=== PATIENT | female | born 2000 | race Two or more races ===

== ENCOUNTER 2019-03-29 07:53 | Emergency (ER) | payer MEDICAID, OTHER ==
[~2019-03-29] VITALS: Ht 167.6 cm; Wt 107.5 kg
[2019-03-29] MEDS ORDERED: methylPREDNISolone SOD SUCC 125 MG/2 ML VL IM ONE (09:00)
[2019-03-29] MEDS ORDERED: EPINEPHrine HCL 1 MG/1 ML AMP SC ONE (09:00)
[2019-03-29 10:49] VITALS: BP 110/66
== END 2019-03-29 11:16 | disposition home or self-care (01) ==
LOC: ER 07:53
DX: T78.40XA Allergy, unspecified, initial encounter (principal); R07.89 Other chest pain; X58.XXXA Exposure to other specified factors, initial encounter
CPT/HCPCS: 36415; 81025; 84484; 93005; 96372; 99284; J0171; J2930